=== PATIENT | female | born 1995 | race Caucasian/White ===

== ENCOUNTER 2021-03-12 22:54 | Inpatient (IN) | payer OTHER ==
[~2021-03-12] VITALS: Ht 157.5 cm; Wt 51.7 kg
[2021-03-13] VITALS (31 sets, daily range): BP systolic 82–148; BP diastolic 22–104
[2021-03-13] MEDS ORDERED: CONTAINER EMPTY IV NR
[2021-03-13] MEDS ORDERED: ALTEPLASE IV NR
[2021-03-13] MEDS ORDERED: ALTEPLASE 100MG/VIAL IV NR
[2021-03-13 00:31] LABS: EOSINOPHILS % 1.3 % (0.0-5.0); HEMATOCRIT. 30.6 % (36.0-48.0); HEMOGLOBIN. 10.9 g/dL (12.0-16.0); LYMPHOCYTES % 37.9 % (20.0-50.0); MEAN CORPUSCULAR HEMOGLOBIN 30.9 pg (28.0-32.0); MEAN CORPUSCULAR VOLUME 86.9 fL (81.0-99.0); MEAN PLATELET VOLUME 8.3 fl (7.4-10.4); MONOCYTES % 14.4 % (2.0-8.0); NEUTROPHILS % 45.4 % (40.0-76.0); PLATELET 296 x1000/uL (130-400); RED BLOOD CELL COUNT 3.53 mill/uL (4.2-5.4); RED CELL DISTRIBUTION WIDTH 14.1 % (11.6-14.6)
[2021-03-13 00:39] LABS: ETHANOL BLOOD < 10 mg/dL
[2021-03-13] MEDS ORDERED: ALTEPLASE 100MG/VIAL IV STA (00:39)
[2021-03-13 00:40] LABS: INR 1.1; PARTIAL THROMBOPLASTIN TIME 27.7 sec (23.4-31.0); PROTHROMBIN TIME 11.5 sec (9.6-11.0)
[2021-03-13 00:41] LABS: CHLORIDE 107 mEq/L (98-107)
[2021-03-13 00:42] LABS: LDL CHOLESTEROL 70 mg/dL (5-100)
[2021-03-13 00:49] LABS: HCG SCREEN NEGATIVE
[2021-03-13] MEDS ORDERED: *NO ASPIRIN X 24 HOURS XX SCH (01:15)
[2021-03-13] MEDS ORDERED: IOHEXOL-350 100 ML BOTTLE ONE (01:17)
[2021-03-13 01:39] LABS: CLARITY URINE CLEAR (CLEAR); COLOR URINE YELLOW (YELLOW); KETONES URINE NEGATIVE (NEGATIVE); LEUKOCYTE ESTERASE URINE NEGATIVE (NEGATIVE); NITRITE URINE NEGATIVE (NEGATIVE); OCCULT BLOOD URINE NEGATIVE (NEGATIVE); PH URINE 7.5 (4.5-8.0); PROTEIN URINE NEGATIVE (NEGATIVE); SPECIFIC GRAVITY URINE 1.032 (1.005-1.030)
[2021-03-13 01:49] LABS: *AMPHETAMINES SCREEN URINE NEGATIVE (NEGATIVE); *BARBITURATES SCREEN URINE NEGATIVE (NEGATIVE); *BENZODIAZEPINES SCREEN URINE NEGATIVE (NEGATIVE); *COCAINE SCREEN URINE NEGATIVE (NEGATIVE); CANNABINOID URINE SCREEN NEGATIVE (NEGATIVE); OPIATES URINE SCREEN NEGATIVE (NEGATIVE); PHENCYCLIDINE URINE SCREEN NEGATIVE (NEGATIVE)
[2021-03-13 01:52] LABS: METHADONE URINE SCREEN NEGATIVE (NEGATIVE)
[2021-03-13] MEDS ORDERED: MORPHINE SULFATE 2 MG/ML CPJ (NOT FOR IM USE) IV PRN (08:30)
[2021-03-13] MEDS ORDERED: NALOXONE HCL 0.4MG/ML VIAL IV PRN (08:30)
[2021-03-13] MEDS ORDERED: ONDANSETRON HCL 4MG/2ML INJ IV PRN (11:00)
[2021-03-13] MEDS ORDERED: CLONIDINE 0.1MG TABLET PO PRN (11:00)
[2021-03-13] MEDS ORDERED: MAGNESIUM/ALUMINUM HYDROXIDE/SIMETHICONE 30ML UDC PO PRN (11:00)
[2021-03-13] MEDS: OMEPRAZOLE 20MG CAPSULE EXTENDED RELEASE PO SCH (11:46)
[2021-03-13 11:57] LABS: BASOPHILS % 0.9 % (0.0-2.0); EOSINOPHILS % 1.5 % (0.0-5.0); HEMOGLOBIN. 11.6 g/dL (12.0-16.0); MEAN CORPUSCULAR HEMOGLOBIN 29.9 pg (28.0-32.0); MEAN CORPUSCULAR VOLUME 87.6 fL (81.0-99.0); MEAN PLATELET VOLUME 8.6 fl (7.4-10.4); MONOCYTES % 14.3 % (2.0-8.0); NEUTROPHILS % 46.3 % (40.0-76.0); PLATELET 297 x1000/uL (130-400); RED BLOOD CELL COUNT 3.88 mill/uL (4.2-5.4); RED CELL DISTRIBUTION WIDTH 14.3 % (11.6-14.6)
[2021-03-13 12:34] LABS: CHLORIDE 111 mEq/L (98-107)
[2021-03-13 12:41] LABS: LDL CHOLESTEROL 82 mg/dL (5-100)
[2021-03-13 12:42] LABS: HDL CHOLESTEROL 77 mg/dL (40-59)
[2021-03-13] MEDS: ACETAMINOPHEN 325MG TABLET PO PRN (20:06)
[2021-03-14] VITALS (38 sets, daily range): BP systolic 74–132; BP diastolic 35–91
[2021-03-14] MEDS: ACETAMINOPHEN 325MG TABLET PO PRN (03:53)
[2021-03-14 06:57] LABS: CHLORIDE 109 mEq/L (98-107); HEMATOCRIT. 34.4 % (36.0-48.0); HEMOGLOBIN. 11.4 g/dL (12.0-16.0); MEAN CORPUSCULAR HEMOGLOBIN 29.3 pg (28.0-32.0); MEAN CORPUSCULAR VOLUME 88.1 fL (81.0-99.0); MEAN PLATELET VOLUME 8.8 fl (7.4-10.4); PLATELET 288 x1000/uL (130-400); RED CELL DISTRIBUTION WIDTH 14.4 % (11.6-14.6)
[2021-03-14 07:05] LABS: PHOSPHORUS 4.2 mg/dL (2.5-4.9)
[2021-03-14 07:06] LABS: LDL CHOLESTEROL 79 mg/dL (5-100)
[2021-03-14 07:07] LABS: HDL CHOLESTEROL 73 mg/dL (40-59)
[2021-03-14 07:08] LABS: T4 FREE 0.99 ng/dL (0.76-1.46)
[2021-03-14 07:44] LABS: D-DIMER 0.22 mg/L FEU (<0.50); PARTIAL THROMBOPLASTIN TIME 27.6 sec (23.4-31.0); PROTHROMBIN TIME 11.2 sec (9.6-11.0)
[2021-03-14] MEDS: OMEPRAZOLE 20MG CAPSULE EXTENDED RELEASE PO SCH (08:59)
[2021-03-14] MEDS: HYDROCODONE/ACETAMINOPHEN 5/325MG TABLET PO PRN ×2 (09:08→15:51)
[2021-03-14] MEDS ORDERED: ASPIRIN 81MG TABLET PO SCH (10:30)
[2021-03-14 15:20] LABS: PLATELET ESTIMATE NORMAL
[2021-03-14] MEDS ORDERED: ATORVASTATIN CALCIUM 20MG TABLET PO SCH (21:00)
== END 2021-03-14 19:25 | disposition short-term general hospital (02) | DRG 556 ==
LOC: EDBD 22:54 → ER 22:54 → MICUSO 03-13 02:14 → CVICU 03-13 08:14
PROVIDERS: ADMIT Internal Medicine; ATTEND Internal Medicine
PROC: 3E03317 Introduction of Other Thrombolytic into Peripheral Vein, Percutaneous Approach (ICD-10-PCS; principal; 2021-03-13)
PROC: 4A10X4Z Monitoring of Central Nervous Electrical Activity, External Approach (ICD-10-PCS; 2021-03-14)
DX: M62.81 Muscle weakness (generalized) (principal); M79.652 Pain in left thigh; D64.9 Anemia, unspecified; F41.0 Panic disorder [episodic paroxysmal anxiety]; G51.0 Bell's palsy; Z82.49 Family history of ischemic heart disease and other diseases of the circulatory system; Z83.3 Family history of diabetes mellitus; Z20.822 Contact with and (suspected) exposure to COVID-19
CPT/HCPCS: 36415; 70496; 70498; 70551; 71045; 72141; 73521; 80048; 80053; 80061; 80076; 80305; 80320; 81003; 83036; 83721; 83735; 84100; 84439; 84484; 84703; 85025; 85379; 87426; 92610; 93005; 93306; 93970; 95816; 97162; 97166; 97530; 99291; J2270; J2997; J7060; Q9967; G0480